=== PATIENT | male | born 2005 | race Caucasian/White ===

== ENCOUNTER 2025-01-01 00:38 | Emergency (ER) | payer BC, OTHER ==
[2025-01-01] MEDS ORDERED: methocarbamoL 500 MG TAB ONE (01:13)
[2025-01-01] MEDS ORDERED: KETOROLAC 30 MG/ML INJ ONE (01:13)
--- NOTE | 2025-01-01 01:55 | EDPHYS ---
Physician Documentation [facility] Name: Al Yi Age: 19 yrs Sex: Male : 2005 Arrival Date: 01/01/2025 Time: 00:38 Bed 10 Private MD: ED Physician Samuel Hunt HPI: 01/01 01:05 This 19 yrs old Male presents to ER via Unassigned with complaints of Back Pain. cp 01:05 The patient presents with pain that is acute, with no known mechanism of injury. The cp symptoms are located in the left subscapular area, right subscapular area and mid back area. Onset: The symptoms/episode began/occurred yesterday, about 1700. The pain does not radiate. Associated signs and symptoms: Pertinent negatives: abdominal pain, chest pain, fever, numbness, weakness, shortness of breath. The problem was sustained from unknown cause. Severity of symptoms: in the emergency department the symptoms are unchanged, despite home interventions. Historical: - Allergies: 01:08 No Known Allergies; jb4 - PMHx: 01:08 None; jb4 - PSHx: 01:08 None; jb4 - Immunization history:: Adult Immunizations up to date. - Infectious Disease History:: Denies. - Social history:: Smoking status: Patient reports the use of cigarette tobacco products, denies chronic smoking, but will smoke occasionally. ROS: 01:10 Constitutional: Negative for body aches, chills, fever, poor PO intake, cp 01:10 Eyes: Negative for injury, pain, redness, and discharge, cp 01:10 ENT: Negative for drainage from ear(s), ear pain, sore throat, difficulty swallowing, difficulty handling secretions, 01:10 Cardiovascular: Negative for chest pain, edema, palpitations, 01:10 Respiratory: Negative for cough, shortness of breath, wheezing, 01:10 Abdomen/GI: Negative for abdominal pain, nausea, vomiting, and diarrhea, 01:10 Back: Positive for pain at rest, pain with movement, of the left subscapular area, right subscapular area and mid back area, 01:10 Neuro: Negative for altered mental status, dizziness, headache, numbness, syncope, weakness, 01:10 All other systems are negative, Exam: 01:15 Constitutional: The patient appears in no acute distress, alert, awake, non-toxic, well cp developed, well nourished, uncomfortable, 01:15 Head/Face: Normocephalic, atraumatic. cp 01:15 Chest/axilla: Inspection: normal, 01:15 Cardiovascular: Rate: normal, Rhythm: regular, 01:15 Respiratory: the patient does not display signs of respiratory distress, Respirations: normal, no use of accessory muscles, no retractions, labored breathing, is not present, Breath sounds: are clear throughout, no decreased breath sounds, no stridor, no wheezing, 01:15 Abdomen/GI: Inspection: abdomen appears normal, Palpation: abdomen is soft and non-tender, in all quadrants, 01:15 Back: pain, of the left subscapular area, right subscapular area and mid back area, ROM is painful, with all movement, CVA tenderness, is absent, no vertebral tenderness to palpation, 01:15 Skin: cellulitis, is not appreciated, no rash present. 01:15 Neuro: Orientation: to person, place \T\ time. Mentation: is normal, Motor: moves all fours, strength is normal, Sensation: is normal, Gait: is steady, Vital Signs: 01:06 BP 142 / 97; Pulse 65; Resp 16; Temp 98.1(O); Pulse Ox 100% on R/A; Weight 95.25 kg; jb4 Height 6 ft. 0 in. ; Pain 7/10; 02:24 BP 123 / 81; Pulse 68; Resp 16; Pulse Ox 100% on R/A; jb4 01:06 Body Mass Index 28.48 (95.25 kg, 182.88 cm) - Percentile 90.6 % page hospital 01:06 Pain Scale: Adult jb4 MDM: 00:59 Medical Screening Exam initiated cp 01:15 Differential diagnosis: Pyelonephritis sprain, Ureterolithiasis strain, muscle spasm. 01:54 Data reviewed: vital signs, nurses notes, and as a result, I will discharge patient. 01:54 I considered the following discharge prescriptions or medication management in the emergency department Medications were administered in the Emergency Department. See MAR. Counseling: I had a detailed discussion with the patient and/or guardian regarding the historical points, exam findings, and any diagnostic results supporting the discharge/admit diagnosis, to return to the emergency department if symptoms worsen or persist or if there are any questions or concerns that arise at home. Response to treatment: the patient's symptoms have mildly improved after treatment, and as a result, I will discharge patient. Administered Medications: 01:22 Drug: Ketorolac IM 30 mg IM once Route: IM; Site: right deltoid; jb4 02:21 Follow up: Response: No adverse reaction; Marked relief of symptoms jb4 01:23 Drug: Methocarbamol PO 1000 mg PO once Route: PO; jb4 02:21 Follow up: Response: No adverse reaction; Marked relief of symptoms jb4 Disposition Summary: 01/01/25 01:54 Discharge Ordered Notes: Location: Home cp Problem: new cp Symptoms: have improved cp Condition: Stable cp Diagnosis - Dorsalgia, unspecified cp Followup: cp - With: Private Physician - When: 2 - 3 days - Reason: pain continues Discharge Instructions: - Discharge Summary Sheet cp - Acute Back Pain, Adult cp - Musculoskeletal Pain cp Forms: - Medication Reconciliation Form cp - Antibiotic Education cp - Prescription Opioid Use cp - Patient Portal Instructions cp - Leadership Thank You Letter cp Prescriptions: - Anaprox DS 550 mg Oral Tablet - take 1 tablet ORAL route every 12 hours As needed; 20 tablet; Refills: 0, cp Product Selection Permitted - methocarbamol 750 mg Oral tablet - take 1 tablet ORAL route every 6-8 hours As needed; 30 tablet; Refills: 0, cp Product Selection Permitted Signatures: Samuel Sanchez PA PA cp Bryson, James, RN RN jb4
--- NOTE | 2025-01-01 01:55 | ER ---
Nurse's Notes [facility] Name: Al Yi Age: 19 yrs Sex: Male : 2005 Arrival Date: 01/01/2025 Time: 00:38 Bed 10 Private MD: Diagnosis: Dorsalgia, unspecified Presentation: 01/01 01:06 Chief complaint: Patient states: I started having mid upper back pain around 5pm jb4 yesterday. I did not lift anything or do anything to hurt myself. Coronavirus screen: At this time, the client does not indicate any symptoms associated with coronavirus-19. Ebola Screen: No symptoms or risks identified at this time. Initial Sepsis Screen: Does the patient meet any 2 criteria? No. Patient's initial sepsis screen is negative. Does the patient have a suspected source of infection? No. Patient's initial sepsis screen is negative. Risk Assessment: Do you want to hurt yourself or someone else? Patient reports no desire to harm self or others. Onset of symptoms was January 01, 2025. Transition of care: patient was not received from another setting of care. 01:06 Method Of Arrival: Ambulatory jb4 01:06 Acuity: MARYBETH 4 jb4 Historical: - Allergies: 01:08 No Known Allergies; jb4 - PMHx: 01:08 None; jb4 - PSHx: 01:08 None; jb4 - Immunization history:: Adult Immunizations up to date. - Infectious Disease History:: Denies. - Social history:: Smoking status: Patient reports the use of cigarette tobacco products, denies chronic smoking, but will smoke occasionally. Screenin:09 [facility] ED Fall Risk Assessment (Adult) History of falling in the last 3 months, jb4 including since admission No falls in past 3 months (0 pts) Confusion or Disorientation No (0 pts) Intoxicated or Sedated No (0 pts) Impaired Gait No (0 pts) Mobility Assist Device Used No (0 pt) Altered Elimination No (0 pt) Score/Fall Risk Level 0 - 2 = Low Risk Oriented to surroundings, Maintained a safe environment. Abuse screen: Denies threats or abuse. Nutritional screening: No deficits noted. Tuberculosis screening: No symptoms or risk factors identified. Assessment: 01:09 General: Appears in no apparent distress. comfortable, Behavior is calm, cooperative, jb4 appropriate for age. Pain: Complains of pain in mid back area Pain does not radiate. Pain currently is 7 out of 10 on a pain scale. Neuro: Level of Consciousness is awake, alert, obeys commands, Oriented to person, place, time, situation. Cardiovascular: Patient's skin is warm and dry. Respiratory: Airway is patent Respiratory effort is even, unlabored, Respiratory pattern is regular, symmetrical. Derm: Skin is intact, Skin is pink, warm \T\ dry. Musculoskeletal: Circulation, motion, and sensation intact. Range of motion: intact in all extremities. Vital Signs: 01:06 BP 142 / 97; Pulse 65; Resp 16; Temp 98.1(O); Pulse Ox 100% on R/A; Weight 95.25 kg; jb4 Height 6 ft. 0 in. ; Pain 7/10; 02:24 BP 123 / 81; Pulse 68; Resp 16; Pulse Ox 100% on R/A; jb4 01:06 Body Mass Index 28.48 (95.25 kg, 182.88 cm) - Percentile 90.6 % jb4 01:06 Pain Scale: Adult jb4 ED Course: 00:41 Patient arrived in ED. mr 00:42 Samuel Sanchez PA is PHCP. cp 00:42 Samuel Hunt MD is Attending Physician. cp 01:08 Triage completed. jb4 01:08 Arm band placed on right wrist. jb4 01:09 Patient has correct armband on for positive identification. Bed in low position. Call jb4 light in reach. Side rails up X 1. Provided Education on: plan of care. 01:09 No provider procedures requiring assistance completed. Patient did not have IV access jb4 during this emergency room visit. Administered Medications: 01:22 Drug: Ketorolac IM 30 mg IM once Route: IM; Site: right deltoid; jb4 02:21 Follow up: Response: No adverse reaction; Marked relief of symptoms jb4 01:23 Drug: Methocarbamol PO 1000 mg PO once Route: PO; jb4 02:21 Follow up: Response: No adverse reaction; Marked relief of symptoms jb4 Medication: 01:09 VIS not applicable for this client. jb4 Outcome: 01:54 Discharge ordered by . cp 02:24 Discharged to home ambulatory, with family, jb4 02:24 Condition: stable 02:24 Discharge instructions given to patient, Instructed on discharge instructions, follow up and referral plans. no drinking with medication, no driving heavy equipment, medication usage, Demonstrated understanding of instructions, follow-up care, medications, Prescriptions given X 2, 02:26 Patient left the ED. jb4 Signatures: Mandi Hines, Familia Reg mr Samuel Sanchez PA PA cp Bryson, James, RN RN jb4
[2025-01-01 02:33] VITALS: TEMP 98.1; O2SAT 100
[2025-01-01 02:34] VITALS: BP 123/81
== END 2025-01-01 02:26 | disposition home or self-care (01) ==
LOC: ER 00:38
DX: M54.9 Dorsalgia, unspecified (principal); F17.210 Nicotine dependence, cigarettes, uncomplicated
CPT/HCPCS: 96372; 99284